=== PATIENT | male | born 1970 | race African-American/Black ===

== ENCOUNTER 2023-05-03 11:51 | Inpatient (IN) | payer MEDICARE, MEDICAID ==
[~2023-05-03] VITALS: Ht 172.7 cm; Wt 49.5 kg
[~2023-05-03 11:51] MED LIST: APIX5TAB MT; ASPI-1497 MT; CITR473S PO; CLOP-31 PO; LIP40 MT
[2023-05-03] MEDS: SODIUM CHLORIDE 0.9% 1000ML BAG (SEPSIS BOLUS) IV ONE (12:15)
[2023-05-03 14:49] LABS: BASOPHILS % 0.4 % (0.0-2.0); EOSINOPHILS % 0.4 % (0.0-5.0); HEMATOCRIT. 38.9 % (42.0-52.0); LYMPHOCYTES % 19.5 % (20.0-50.0); MEAN CORPUSCULAR HEMOGLOBIN 30.2 pg (28.0-32.0); MEAN CORPUSCULAR HGB CONC 33.5 g/dL (31.0-37.0); MEAN CORPUSCULAR VOLUME 90.3 fL (80.0-94.0); MEAN PLATELET VOLUME 7.2 fl (7.4-10.4); MONOCYTES % 11.3 % (2.0-8.0); NEUTROPHILS % 68.4 % (40.0-76.0); PLATELET 262 x1000/uL (130-400); RED BLOOD CELL COUNT 4.31 mill/uL (4.7-6.1); RED CELL DISTRIBUTION WIDTH 14.4 % (11.6-14.6); WHITE BLOOD COUNT 6.2 x1000/uL (4.5-11.0)
[2023-05-03 15:02] LABS: AMMONIA < 17 uMol/L (<32)
[2023-05-03 15:06] LABS: ALANINE AMINOTRANSFERASE 14 IU/L (10-49); ALBUMIN 4.1 g/dL (3.2-4.8); ASPARTATE AMINOTRANSFERASE 20 IU/L (<34); BILIRUBIN TOTAL 0.4 mg/dL (0.1-1.0); CALCIUM 9.1 mg/dL (8.7-10.4); CARBON DIOXIDE 30 mEq/L (21-32); CHLORIDE 111 mEq/L (98-107); CREATININE 0.9 mg/dL (0.6-1.3); GLUCOSE 80 mg/dL (70-105); POTASSIUM 3.9 mEq/L (3.5-5.1); PROTEIN TOTAL 7.3 g/dL (6.0-8.3); SODIUM 142 mEq/L (136-145); THYROID STIMULATING HORMONE 1.65 uIU/mL (0.55-4.78); UREA NITROGEN BLOOD 10 mg/dL (9-23)
[2023-05-03 15:07] LABS: ETHANOL BLOOD < 10 mg/dL (<10)
[2023-05-03 16:15] LABS: CLARITY URINE CLEAR (CLEAR); COLOR URINE YELLOW (YELLOW); GLUCOSE URINE NEGATIVE (NEGATIVE); KETONES URINE NEGATIVE (NEGATIVE); LEUKOCYTE ESTERASE URINE 2+ (NEGATIVE); NITRITE URINE NEGATIVE (NEGATIVE); OCCULT BLOOD URINE 3+ (NEGATIVE); PH URINE 6.5 (4.5-8.0); PROTEIN URINE NEGATIVE (NEGATIVE); SPECIFIC GRAVITY URINE 1.008 (1.005-1.030)
[2023-05-03] MEDS: CEFTRIAXONE 1GM/50ML 50 ML IV ONE (16:20)
[2023-05-03 16:29] LABS: *AMPHETAMINES SCREEN URINE NEGATIVE (NEGATIVE); *BARBITURATES SCREEN URINE NEGATIVE (NEGATIVE); *BENZODIAZEPINES SCREEN URINE NEGATIVE (NEGATIVE); *COCAINE SCREEN URINE NEGATIVE (NEGATIVE); CANNABINOID URINE SCREEN NEGATIVE (NEGATIVE); ECSTASY MDMA SCREEN URINE NEGATIVE (NEGATIVE); METHADONE URINE SCREEN Neg (NEGATIVE); OPIATES URINE SCREEN NEGATIVE (NEGATIVE); PHENCYCLIDINE URINE SCREEN NEGATIVE (NEGATIVE)
[2023-05-03 16:43] LABS: RBC URINE 15-25 /hpf (0-2); SQUAMOUS EPITHELIAL CELL URINE 3+ /lpf (RARE/1+)
[2023-05-03 17:30] LABS: BACTERIA URINE 1+
[2023-05-03 19:30] VITALS: BP 134/89; PULSE 52; RESP 18; TEMP 97.9
[2023-05-03 20:00] VITALS: BP 134/89; PULSE 52; RESP 18; TEMP 97.9
[2023-05-03] MEDS ORDERED: TAMS-11 (22:31)
[2023-05-03] MEDS ORDERED: DONE10TA43 PO (22:31)
[2023-05-03] MEDS ORDERED: PRIL20 PO (22:31)
[2023-05-03] MEDS ORDERED: MEMA5TAB42 PO (22:31)
[2023-05-03] MEDS ORDERED: FINA5TAB11 PO (22:31)
[2023-05-04] VITALS: BP 129/87; PULSE 55; RESP 20; TEMP 98.3
[2023-05-04 04:00] VITALS: BP 123/61; PULSE 70; RESP 20; TEMP 97.9
[2023-05-04 08:00] VITALS: BP 138/79; PULSE 79; RESP 18; TEMP 98.4
[2023-05-04] MEDS: OMEPRAZOLE 20MG CAPSULE EXTENDED RELEASE PO SCH (09:05)
[2023-05-04] MEDS: ASPIRIN 81MG TABLET PO SCH (09:05)
[2023-05-04] MEDS: DONEPEZIL HCL 10MG TABLET PO SCH (09:06)
[2023-05-04] MEDS: FINASTERIDE 5MG TABLET PO SCH (09:06)
[2023-05-04] MEDS: CLOPIDOGREL 75MG TABLET PO SCH (09:06)
[2023-05-04] MEDS: APIXABAN 5 MG TABLET PO SCH (09:06)
[2023-05-04] MEDS: TAMSULOSIN HCL 0.4MG SR CAPSULE PO SCH (09:06)
[2023-05-04] MEDS: MEMANTINE HCL 5MG TABLET PO SCH (09:06)
[2023-05-04 12:00] VITALS: BP 128/79; PULSE 81; RESP 20; TEMP 97.4
[2023-05-04 12:46] LABS: BASOPHILS % 0.5 % (0.0-2.0); EOSINOPHILS % 0.3 % (0.0-5.0); HEMATOCRIT. 38.5 % (42.0-52.0); HEMOGLOBIN. 12.9 g/dL (14.0-18.0); LYMPHOCYTES % 17.9 % (20.0-50.0); MEAN CORPUSCULAR HEMOGLOBIN 29.9 pg (28.0-32.0); MEAN CORPUSCULAR HGB CONC 33.4 g/dL (31.0-37.0); MEAN CORPUSCULAR VOLUME 89.4 fL (80.0-94.0); MEAN PLATELET VOLUME 7.4 fl (7.4-10.4); MONOCYTES % 9.4 % (2.0-8.0); NEUTROPHILS % 71.9 % (40.0-76.0); PLATELET 263 x1000/uL (130-400); RED BLOOD CELL COUNT 4.31 mill/uL (4.7-6.1); RED CELL DISTRIBUTION WIDTH 14.6 % (11.6-14.6); WHITE BLOOD COUNT 5.7 x1000/uL (4.5-11.0)
[2023-05-04 13:10] LABS: CALCIUM 8.6 mg/dL (8.7-10.4); CARBON DIOXIDE 28 mEq/L (21-32); CHLORIDE 107 mEq/L (98-107); CREATININE 0.9 mg/dL (0.6-1.3); GLUCOSE 94 mg/dL (70-105); POTASSIUM 3.6 mEq/L (3.5-5.1); SODIUM 141 mEq/L (136-145); UREA NITROGEN BLOOD 8 mg/dL (9-23)
[2023-05-04 16:00] VITALS: BP 118/79; PULSE 79; RESP 22; TEMP 98
[2023-05-04] MEDS: CEFTRIAXONE 1GM/50ML 50 ML IV SCH (17:15)
[2023-05-04] MEDS ORDERED: DONE-53 PO (19:10)
[2023-05-04] MEDS ORDERED: DOCU-150 MT (19:10)
[2023-05-04] MEDS ORDERED: OMEP20CA14 MT (19:10)
[2023-05-04] MEDS ORDERED: MIRT-144 MT (19:10)
[2023-05-04] MEDS ORDERED: MELA10CA MT (19:10)
[2023-05-04] MEDS ORDERED: LORA-250 PO (19:10)
[2023-05-04 20:23] VITALS: BP 107/71; PULSE 60; RESP 20; TEMP 98.1
[2023-05-04] MEDS ORDERED: LORAZEPAM 1MG TABLET PO PRN (21:00)
[2023-05-04] MEDS ORDERED: ATORVASTATIN CALCIUM 40MG TABLET PO SCH (21:00)
[2023-05-04] MEDS ORDERED: MELATONIN MT PRN (21:00)
[2023-05-04] MEDS ORDERED: DONEPEZIL HCL 10 MG PO SCH (21:00)
[2023-05-04] MEDS ORDERED: MELATONIN 3MG TABLET PO PRN (21:14)
[2023-05-04] MEDS: MIRTAZAPINE 15MG TABLET PO SCH (22:06)
[2023-05-05] VITALS: BP 132/63; PULSE 59; RESP 18; TEMP 98.5
[2023-05-05 04:00] VITALS: BP 116/78; PULSE 86; RESP 20; TEMP 99.1
[2023-05-05 08:00] VITALS: BP 114/76; PULSE 49; RESP 20; TEMP 98
[2023-05-05] MEDS: OMEPRAZOLE 20MG CAPSULE EXTENDED RELEASE PO SCH (08:36)
[2023-05-05] MEDS: DOCUSATE SODIUM 100MG CAPSULE PO SCH (08:36)
[2023-05-05 12:00] VITALS: BP 111/71; PULSE 48; RESP 20; TEMP 97.4
[2023-05-05 16:00] VITALS: BP 118/75; PULSE 50; RESP 20; TEMP 97.8
[2023-05-05] MEDS: CEFTRIAXONE 1GM/50ML 50 ML IV SCH (17:32)
[2023-05-05 20:29] VITALS: BP 131/78; PULSE 83; RESP 20; TEMP 98.6
[2023-05-05] MEDS ORDERED: LEVO-65 MT (20:52)
[2023-05-05] MEDS: DONEPEZIL HCL 10MG TABLET PO SCH (22:05)
[2023-05-06 00:20] VITALS: BP 135/70; PULSE 86; RESP 20; TEMP 98.9
[2023-05-06 04:00] VITALS: BP 123/76; PULSE 44; RESP 20; TEMP 98.6
[2023-05-06 08:00] VITALS: BP 117/71; PULSE 50; RESP 18; TEMP 97.8
[2023-05-06 09:31] VITALS: BP 117/71; PULSE 50; TEMP 97.8; O2SAT 100
[2023-05-06 12:00] VITALS: BP 111/65; PULSE 49; RESP 18; TEMP 97.6
[2023-05-06 16:00] VITALS: BP 106/75; PULSE 53; RESP 18; TEMP 98
== END 2023-05-06 16:54 | disposition home or self-care (01) | DRG 689 ==
LOC: ER 12:08 → 7WST 15:30 → EDBD 15:30 → EDBEDREQ 15:32 → EDBEDREQTM 15:32
PROVIDERS: ADMIT Internal Medicine; ATTEND Internal Medicine
DX: N39.0 Urinary tract infection, site not specified (principal); G93.41 Metabolic encephalopathy; I50.22 Chronic systolic (congestive) heart failure; F03.918 Unspecified dementia, unspecified severity, with other behavioral disturbance; E78.00 Pure hypercholesterolemia, unspecified; E11.9 Type 2 diabetes mellitus without complications; I11.0 Hypertensive heart disease with heart failure; Z95.1 Presence of aortocoronary bypass graft; Z79.4 Long term (current) use of insulin
CPT/HCPCS: 36415; 71045; 80048; 80053; 80305; 80320; 81003; 82140; 82962; 83605; 84145; 84443; 85025; 87077; 87186; 93005; 99285; J0696; J7030; G0480

== ENCOUNTER 2023-06-16 22:58 | Emergency (ER) | payer MEDICAID, MEDICARE ==
[~2023-06-16] VITALS: Ht 330.2 cm; Wt 72.0 kg
[~2023-06-16 22:58] MED LIST changes: -APIX5TAB MT; -ASPI-1497 MT; -CITR473S PO; -CLOP-31 PO; +DOCU-150 MT; +DONE-53 PO; -LIP40 MT; +LORA-250 PO; +MELA10CA MT; +MIRT-144 MT; +OMEP20CA14 MT
[2023-06-16 23:00] VITALS: O2SAT 98
[2023-06-16 23:41] VITALS: TEMP 97.8
[2023-06-16 23:56] LABS: BASOPHILS % 0.3 % (0.0-2.0); EOSINOPHILS % 0.3 % (0.0-5.0); HEMATOCRIT. 38.2 % (42.0-52.0); HEMOGLOBIN. 12.6 g/dL (14.0-18.0); LYMPHOCYTES % 20.6 % (20.0-50.0); MEAN CORPUSCULAR HEMOGLOBIN 30.2 pg (28.0-32.0); MEAN CORPUSCULAR HGB CONC 32.9 g/dL (31.0-37.0); MEAN CORPUSCULAR VOLUME 91.6 fL (80.0-94.0); NEUTROPHILS % 68.8 % (40.0-76.0); PLATELET 308 x1000/uL (130-400); RED BLOOD CELL COUNT 4.17 mill/uL (4.7-6.1); RED CELL DISTRIBUTION WIDTH 14.3 % (11.6-14.6); WHITE BLOOD COUNT 6.7 x1000/uL (4.5-11.0)
[2023-06-17 00:04] LABS: CHLORIDE 111 mEq/L (98-107); POTASSIUM 4.5 mEq/L (3.5-5.1); SODIUM 143 mEq/L (136-145)
[2023-06-17 00:05] LABS: CALCIUM 9.7 mg/dL (8.7-10.4); CARBON DIOXIDE 30 mEq/L (21-32)
[2023-06-17 00:10] LABS: GLUCOSE 91 mg/dL (70-105); UREA NITROGEN BLOOD 12 mg/dL (9-23)
[2023-06-17 02:03] LABS: CLARITY URINE CLEAR (CLEAR); COLOR URINE YELLOW (YELLOW); GLUCOSE URINE NEGATIVE (NEGATIVE); KETONES URINE NEGATIVE (NEGATIVE); LEUKOCYTE ESTERASE URINE NEGATIVE (NEGATIVE); NITRITE URINE NEGATIVE (NEGATIVE); OCCULT BLOOD URINE 2+ (NEGATIVE); PH URINE 5.5 (4.5-8.0); PROTEIN URINE NEGATIVE (NEGATIVE); SPECIFIC GRAVITY URINE 1.012 (1.005-1.030); UROBILINOGEN URINE 0.2 E.U./dL (0.2-1.0)
[2023-06-17 02:24] LABS: WBC URINE 0-2 /hpf (0-2)
[2023-06-17 02:26] LABS: BACTERIA URINE NONE SEEN; SQUAMOUS EPITHELIAL CELL URINE NONE SEEN /lpf (RARE/1+)
[2023-06-17 05:45] VITALS: BP 135/79; PULSE 57; RESP 14
== END 2023-06-17 06:45 | disposition home or self-care (01) ==
LOC: EDBD 22:58 → ER 22:58
DX: R31.9 Hematuria, unspecified (principal); F03.90 Unspecified dementia, unspecified severity, without behavioral disturbance, psychotic disturbance, mood disturbance, and anxiety; F19.90 Other psychoactive substance use, unspecified, uncomplicated; Z98.890 Other specified postprocedural states
CPT/HCPCS: 80048; 85025; 36415; 99285; 81003; Z7610 ×2